=== PATIENT | male | born 1960 | race Caucasian/White ===

== ENCOUNTER 2018-08-28 10:11 | Emergency (ER) | payer OTHER ==
[~2018-08-28] VITALS: Ht 182.9 cm; Wt 136.1 kg
[2018-08-28 10:16] VITALS: BP 171/102
[2018-08-28] MEDS ORDERED: CEPH-264 PO (11:13)
[2018-08-28] MEDS ORDERED: GUAI12003 PO (11:13)
[2018-08-28] MEDS ORDERED: PRED50TA PO (11:13)
--- NOTE | 2018-08-28 11:20 | ED.ADGEN ---
Past History Past Medical History: Asthma, High Cholesterol, Hypertension Past Surgical History: Hip Replacement Alcohol Use: None Drug Use: None Adult General Chief Complaint Chief Complaint Asthma HPI HPI Patient is a 57-year-old male with history of asthma and hypertension who presents with productive cough with yellow-green sputum chest tightness and increased wheezing for the past 2 days. No fever chills, nausea vomiting or sweats. Patient reports sick exposure to multiple known members that also have upper respiratory tract infections. Patient has had increased home inhaler use and is been using albuterol inhaler 3-4 times daily. He is currently taking Zyrtec and Singulair. He contacted his primary care physician today and was instructed to go to the emergency department.[] Review of Systems Review of Systems Review symptoms of symptoms as per history of present illness All other review symptoms are negative. All other systems were reviewed and found to be within normal limits, except as documented in this note. Allergies Allergies Allergies Coded Allergies Type Severity Reaction Last Updated Verified No Known Drug Allergies 08/28/18 No Physical Exam Physical Exam Constitutional: Well developed, well nourished, no acute distress, non-toxic appearance. [] HENT: Normocephalic, atraumatic, bilateral external ears normal, oropharynx moist, no oral exudates, nose, nasal congestion turbinate swelling. [] Eyes: PERRLA, EOMI, conjunctiva normal, no discharge. [] Neck: Normal range of motion, no tenderness, supple, no stridor. [] Cardiovascular:Heart rate regular rhythm, no murmur [] Lungs & Thorax: Abrasions nonlabored mildly diminished, coarse expiratory wheezes. No rales or rhonchi.[] Abdomen: Bowel sounds normal, soft, no tenderness. [] Skin: Warm, dry, no erythema. [] Back: No tenderness. [] Extremities: No tenderness, no edema. [] Neurologic: Alert and oriented X 3, normal motor function, normal sensory function. [] Psychologic: Affect normal, judgement normal, mood normal. [] Current Patient Data Vital Signs Vital Signs Date Time Temp Pulse Resp B/P (MAP) Pulse Ox O2 Delivery O2 Flow Rate FiO2 08/28/18 10:16 97.2 69 18 97 Room Air EKG EKG [] Radiology/Procedures Radiology/Procedures [] Course & Med Decision Making Course & Med Decision Making Pertinent Labs and Imaging studies reviewed. (See chart for details) [Upper respiratory tract infection with bronchospasm. Patient is not hypoxic, minimal wheezing. Will treat with PCP follow-up.] Final Impression Final Impression [1Asthma Exacerbation 2 acute bronchitis ] Hillary Disclaimer Dragon Disclaimer This electronic medical record was generated, in whole or in part, using a voice recognition dictation system. KIRK RAMÍREZ DO Aug 28, 2018 11:20
== END 2018-08-28 11:21 | disposition home or self-care (01) ==
LOC: ER 10:11
DX: J45.901 Unspecified asthma with (acute) exacerbation (principal); J20.9 Acute bronchitis, unspecified; J06.9 Acute upper respiratory infection, unspecified; E78.00 Pure hypercholesterolemia, unspecified; I10 Essential (primary) hypertension
CPT/HCPCS: 99283

== ENCOUNTER 2020-08-04 10:42 | Emergency (ER) | payer OTHER ==
[~2020-08-04] VITALS: Ht 185.4 cm; Wt 129.5 kg
[~2020-08-04 10:42] MED LIST: CEPH-264 PO; GUAI12003 PO; PRED50TA PO
[2020-08-04] MEDS ORDERED: IOHEXOL 300 MG/ML 75 ML VIAL. IV ONE (11:15)
[2020-08-04 11:43] LABS: BASO % 0 % (0-3); EOS # 0.2 x10^3/uL (0.0-0.7); EOS % 3 % (0-3); HEMATOCRIT 48.3 % (39.0-53.0); HEMOGLOBIN 15.9 g/dL (13.0-17.5); LYMPH # 1.4 x10^3/uL (1.0-4.8); LYMPH % 19 % (24-48); MEAN CORPUSCULAR HEMOGLOBIN 31 pg (25-35); MEAN CORPUSCULAR HGB CONC 33 g/dL (31-37); MEAN CORPUSCULAR VOLUME 93 fL (79-100); MONO # 0.7 x10^3/uL (0.0-1.1); MONO % 9 % (0-9); NEUT # 5.2 x10^3uL (1.8-7.7); NEUT % 69 % (31-73); PLATELET COUNT 210 x10^3/uL (140-400); RED BLOOD COUNT 5.21 x10^6/uL (4.30-5.70); RED CELL DISTRIBUTION WIDTH 13.1 % (11.5-14.5); WHITE BLOOD COUNT 7.5 x10^3/uL (4.0-11.0)
[2020-08-04 11:49] LABS: CREATININE 1.1 mg/dL (0.7-1.3); GFR 68.8; POTASSIUM 4.3 mmol/L (3.5-5.1)
--- NOTE | 2020-08-04 12:49 | RAD ---
Examination: CT PELVIS W/CONTRAST History: recent hernia surgery, pain, swelling - diabetic / Comparison/Correlation: None Findings: Axial images of the pelvis obtained following IV contrast. Sagittal and coronal reformatted images were provided. Imaging was performed from the lower renal level to the proximal femoral shaft. Infusion port is seen at the left supraumbilical, mid to lower abdominal level in the midline. Associated tubing which extends superiorly is noted on the topogram. Visualized small bowel is unremarkable. Appendix is normal. Moderate-sized right inguinal hernia contains omental fat. Mild prominence of the vascularity is noted involving the right lower pelvic abdominal fat at the right inguinal hernia level. Slightly prominent vessel sizes is noted within the fat of the right lower omentum at the level of the hiatal hernia and also within the hiatal hernia. Urinary bladder is unremarkable. No enlarged pelvic lymph nodes. No pelvic free fluid or lower abdominal ascites. The right hip joint arthroplasty is noted. Bilateral L4-5 facet joint degenerative changes including vacuum phenomenon noted. Impression: Right inguinal hernia containing omental fat is moderate size and of slightly high density. Omental fat on the right at this level is also slightly high density. Findings may represent mild edema. No loculated collection. PQRS Compliance Statement: One or more of the following individualized dose reduction techniques were utilized for this examination: 1. Automated exposure control 2. Adjustment of the mA and/or kV according to patient size 3. Use of iterative reconstruction technique Electronically signed by: Bobby Sanford MD (08/04/2020 12:46 PM) [id number]
--- NOTE | 2020-08-04 13:26 | PHYS DOC ---
Past History Past Medical History: Asthma, Diabetes, High Cholesterol, Hypertension Past Surgical History: Hip Replacement, Knee Replacement, Other Additional Past Surgical Histo: 07/29/20- right inguinal hernia surgery Alcohol Use: None Drug Use: None Adult General Chief Complaint Chief Complaint: POST-OP PROBLEM HPI HPI Patient is a 59-year-old male who presents to the emergency room complaining of testicular pain and swelling after a hernia repair. He had his hernia repair last . He states as far as he knows there were no complications. He did have some swelling right after the surgery and talk to his surgeon about it on Sunday. They stated this was normal postop swelling. He states that the swelling has gotten progressively worse over time and he has noticed a purple discoloration in his testicles and up his penis. He states that his testicles are very swollen particularly on the right side. He states as long as he is l aying down he does not have any pain but anytime he tries to get up and move around it is very painful. He denies any nausea or vomiting. He has not had any difficulty with his bowels. He has not had any fever. Review of Systems Review of Systems General: Denies fever, chills, sweats, fatigue Eyes: Denies drainage, blurred vision, eye redness HENT: Denies rhinorrhea, sore throat, earache Respiratory: Denies cough, shortness of breath, wheezing Cardiac: Denies edema, palpitations, chest pain GI: Denies abdominal pain, Nausea, vomiting MSK: Denies back pain, neck pain Skin: Denies rash, jaundice Neuro: Denies headache, dizziness Psychiatric: Denies SI/HI general: Denies fever, chills, sweats, fatigue Eyes: Denies drainage, blurred vision, eye redness HENT: Denies rhinorrhea, sore throat, earache Respiratory: Denies cough, shortness of breath, wheezing Cardiac: Denies edema, palpitations, chest pain GI: Denies abdominal pain, Nausea, vomiting MSK: Denies back pain, neck pain Skin: Denies rash, jaundice Neuro: Denies headache, dizziness Psychiatric: Denies SI/HI Current Medications Current Medications Current Medications Medications (Trade) Dose Ordered Sig/Tabitha Start Time Stop Time Status Last Admin Dose Admin Iohexol (Omnipaque 300 Mg/ml) 75 ml 1X ONCE 08/04/20 11:15 08/04/20 11:16 DC 08/04/20 12:09 75 ML Allergies Allergies Allergies Coded Allergies Type Severity Reaction Last Updated Verified No Known Drug Allergies 08/28/18 No Physical Exam Physical Exam General: Awake, alert, NAD. Well Nourished, well hydrated. Cooperative HEENT: Atraumatic, EOMI, PERRL, airway patent, moist oral mucosa Neck: Supple, trachea midline Respiratory: CTA bilaterally, normal effort, no wheezing/crackles CV: RRR, no murmur, cap refill <2 GI: Soft, nondistended, nontender, no masses : Bilateral testicular swelling worse on the R side, bruising of R testicle with extension along the penis, mass within testicle that could be hematoma vs hernia MSK: No obvious deformities Skin: Warm, dry, intact Neuro: A&O x3, speech NL, sensory and motor grossly intact, no focal deficits Psych: Normal affect, normal mood, not suicidal or homicidal Current Patient Data Vital Signs Vital Signs Date Time Temp Pulse Resp B/P (MAP) Pulse Ox O2 Delivery O2 Flow Rate FiO2 08/04/20 11:02 98.1 74 16 148/90 (109) 97 Room Air Lab Results Laboratory Tests Test 08/04/20 11:22 White Blood Count 7.5 x10^3/uL (4.0-11.0) Red Blood Count 5.21 x10^6/uL (4.30-5.70) Hemoglobin 15.9 g/dL (13.0-17.5) Hematocrit 48.3 % (39.0-53.0) Mean Corpuscular Volume 93 fL (79-100) Mean Corpuscular Hemoglobin 31 pg (25-35) Mean Corpuscular Hemoglobin Concent 33 g/dL (31-37) Red Cell Distribution Width 13.1 % (11.5-14.5) Platelet Count 210 x10^3/uL (140-400) Neutrophils (%) (Auto) 69 % (31-73) Lymphocytes (%) (Auto) 19 % (24-48) L Monocytes (%) (Auto) 9 % (0-9) Eosinophils (%) (Auto) 3 % (0-3) Basophils (%) (Auto) 0 % (0-3) Neutrophils # (Auto) 5.2 x10^3uL (1.8-7.7) Lymphocytes # (Auto) 1.4 x10^3/uL (1.0-4.8) Monocytes # (Auto) 0.7 x10^3/uL (0.0-1.1) Eosinophils # (Auto) 0.2 x10^3/uL (0.0-0.7) Basophils # (Auto) 0.0 x10^3/uL (0.0-0.2) Prothrombin Time 10.2 SEC (9.4-11.4) Prothrombin Time INR 1.0 (0.9-1.1) Sodium Level 142 mmol/L (136-145) Potassium Level 4.3 mmol/L (3.5-5.1) Chloride Level 105 mmol/L (98-107) Carbon Dioxide Level 28 mmol/L (21-32) Anion Gap 9 (6-14) Blood Urea Nitrogen 23 mg/dL (8-26) Creatinine 1.1 mg/dL (0.7-1.3) Estimated GFR (Cockcroft-Gault) 68.8 Glucose Level 156 mg/dL (70-99) H Calcium Level 9.0 mg/dL (8.5-10.1) EKG EKG [] Radiology/Procedures Radiology/Procedures [] Course & Med Decision Making Course & Med Decision Making Pertinent Labs and Imaging studies reviewed. (See chart for details) Patient Is a 59 year old male who presents to the Emergency Room complaining of R testicular pain after a hernia surgery. He has significant swelling and tenderness. This may be due to post op hematoma and bruising. However given the swelling will do CT of pelvis with contrast and lab work. CT shows hernia which suggests failure of mesh. Dr Aviles contacted who states it is more likely a post op hematoma. Exam is consistent with hematoma. Dr Aviles will review imagining and have him follow up in clinic. No signs of bowel ischemia at this t aundrea. Patient's test results and vitals while in the ED were fully reviewed and discussed with the patient. Patient is stable and at this time does not need admission to the hospital. We have discussed strict return precautions and the importance of following up with their Primary Care Physician. Patient stated understanding and was given an opportunity to ask any questions. Patient is in agreement with plan. Dragon Disclaimer Dragon Disclaimer This electronic medical record was generated, in whole or in part, using a voice recognition dictation system. Departure Departure: Impression: Primary Impression: Postoperative hematoma Disposition: 01 HOME/RESIDENCE PRIOR TO ADM Condition: STABLE Referrals: ELEAZAR SILVA DO (PCP) Patient Instructions: Scrotal Hematoma MALGORZATA BURKS MD Aug 04, 2020 13:26
[2020-08-04] MEDS ORDERED: OXYC1TAB15 PO (14:08)
[2020-08-04 14:15] VITALS: BP 157/98
== END 2020-08-04 14:20 | disposition home or self-care (01) ==
LOC: ER 10:42
DX: N99.841 Postprocedural hematoma of a genitourinary system organ or structure following other procedure (principal); N50.811 Right testicular pain; J45.909 Unspecified asthma, uncomplicated; E11.9 Type 2 diabetes mellitus without complications; E78.00 Pure hypercholesterolemia, unspecified; I10 Essential (primary) hypertension
CPT/HCPCS: 36415; 72193; 80048; 85025; 85610; 99285; Q9967

== ENCOUNTER 2020-08-20 06:38 | Emergency (ER) | payer OTHER ==
[~2020-08-20] VITALS: Ht 185.4 cm; Wt 130.1 kg
[~2020-08-20 06:38] MED LIST changes: +OXYC1TAB15 PO
[2020-08-20 06:52] VITALS: BP 114/98
--- NOTE | 2020-08-20 07:08 | PHYS DOC ---
Past History Past Medical History: Asthma, Diabetes, High Cholesterol, Hypertension Past Surgical History: Hip Replacement, Knee Replacement, Other Additional Past Surgical Histo: 07/29/20- right inguinal hernia surgery Alcohol Use: None Drug Use: None General Adult EDM: Chief Complaint: POST-OP PROBLEM HPI: HPI: Patient is a 59-year-old male coming in with worsening right groin and right lower quadrant pain and swelling. Had a hernia repair with mesh 3 weeks ago was seen 1 week ago and diagnosed with a hematoma. Patient states he has not been doing any heavy lifting or working out but woke up this morning with worsening pain and swelling. Patient states his symptoms were not present when he went to bed last night. But now feels that the swelling is worse through his right scrotum up into the right side of his abdomen. No other complaints, still have regular bowel movements. Review of Systems: Review of Systems: Constitutional: Denies fever or chills Eyes: Denies change in visual acuity HENT: Denies nasal congestion or sore throat Respiratory: Denies cough or shortness of breath Cardiovascular: Denies chest pain or edema GI: Denies abdominal pain, nausea, vomiting, bloody stools or diarrhea, right lower quadrant pain and swelling : Denies dysuria or hematuria, swelling of the right scrotum Musculoskeletal: Denies back pain or joint pain Integument: Denies rash Neurologic: Denies headache, focal weakness or sensory changes Endocrine: Denies polyuria or polydipsia Lymphatic: Denies swollen glands Psychiatric: Denies depression or anxiety Heart Score: Risk Factors: Risk Factors: DM, Current or recent (<one month) smoker, HTN, HLP, family history of CAD, obesity. Risk Scores: Score 0 - 3: 2.5% MACE over next 6 weeks - Discharge Home Score 4 - 6: 20.3% MACE over next 6 weeks - Admit for Clinical Observation Score 7 - 10: 72.7% MACE over next 6 weeks - Early Invasive Strategies Allergies: Allergies: Allergies Coded Allergies Type Severity Reaction Last Updated Verified No Known Drug Allergies 08/28/18 No Physical Exam: PE: Constitutional: Well developed, well nourished, no acute distress, non-toxic appearance. [] HENT: Normocephalic, atraumatic, bilateral external ears normal, oropharynx moist, no oral exudates, nose normal. [] Eyes: PERRLA, EOMI, conjunctiva normal, no discharge. [] Neck: Normal range of motion, no tenderness, supple, no stridor. [] Cardiovascular:Heart rate regular rhythm, no murmur [] Lungs & Thorax: Bilateral breath sounds clear to auscultation [] Abdomen: Bowel sounds normal, soft, no tenderness, no masses, no pulsatile masses. [] Tender mass in right inguinal area extending into right testicle. Skin: Warm, dry, no erythema, no rash. [] Back: No tenderness, no CVA tenderness. [] Extremities: No tenderness, no cyanosis, no clubbing, ROM intact, no edema. [] Neurologic: Alert and oriented X 3, normal motor function, normal sensory function, no focal deficits noted. [] Psychologic: Affect normal, judgement normal, mood normal. [] Current Patient Data: Vital Signs: Vital Signs Date Time Temp Pulse Resp B/P (MAP) Pulse Ox O2 Delivery O2 Flow Rate FiO2 08/20/20 06:52 98.0 59 16 114/98 (103) 97 Room Air EKG: EKG: [] Radiology/Procedures: Radiology/Procedures: CT abdomen and pelvis with contrast PQRS statement: CT scans at this facility use dose reduction including either automated exposure control, iterative reconstructions, and /or weight based radiation dosing via mA and kV modification when appropriate to reduce radiation dose to as low as reasonably achievable. Contrast: 100 mL of a 300 intravenous contrast. HISTORY: Right lower quadrant pain, right lower quadrant hernia, right inguinal hernia. Abdomen findings: Bariatric gastric banding, small sliding hiatal hernia gastroesophageal junction. Lung bases unremarkable. Small densities likely gallstones within the gallbladder. 2 cm right adrenal nodule density of 9 units favoring an adrenal cyst or adenoma. Left adrenal, left kidney, pancreas, spleen and liver are unremarkable. Right renal midpole exophytic 1 cm cyst density 5 units. Mild sigmoid diverticulosis. Appendix is negative. No obstruction or inflammation GI tract. No abdominal fluid or adenopathy. Lower thoracic vertebral and lumbar vertebral hemangiomas. Pelvis findings: Right hip arthroplasty. Right inguinal hernia containing fat and fluid measures 18 x 6 cm and displaces the right testicle inferiorly within the scrotum, no herniation of bowel. There is mild fat stranding deep to the right inguinal ligament at the right lower quadrant which could be inflammation or necrosis of the fat or could be due to prior surgery. Bladder, prostate, rectum unremarkable. IMPRESSION: 1. Fluid and fat-containing right inguinal hernia. No herniation of bowel. See above. 2. No acute process in the abdomen. Appendix is negative. [] Course & Med Decision Making: Course & Med Decision Making Pertinent Labs and Imaging studies reviewed. (See chart for details) No signs of bowel involvement and hernia, discussed with patient pain is likely worsening and now contains fat. Discussed return precautions and pain management until follow-up with his surgeon. [] Dragon Disclaimer: Dragon Disclaimer: This electronic medical record was generated, in whole or in part, using a voice recognition dictation system. Departure Departure: Impression: Primary Impression: Right inguinal hernia Disposition: 01 DC HOME SELF CARE/HOMELESS Condition: STABLE Referrals: ELEAZAR SILVA DO (PCP) SOLOMON COREA MD Patient Instructions: Hernia Scripts Hydrocodone Bit/Acetaminophen (NORCO 5-325 TABLET) 1 Each Tablet 1-2 TAB PO Q4-6HRS PRN for PAIN for 3 Days, #20 TAB Prov: BERNABE GAMA MD 08/20/20 BERNABE GAMA MD Aug 20, 2020 07:08
[2020-08-20] MEDS ORDERED: IOHEXOL 300 MG/ML 75 ML VIAL. IV ONE (07:15)
[2020-08-20] MEDS ORDERED: CONTRAST GIVEN. MC PRN (07:30)
[2020-08-20 07:45] LABS: BASO % 0 % (0-3); EOS # 0.2 x10^3/uL (0.0-0.7); EOS % 3 % (0-3); HEMATOCRIT 47.8 % (39.0-53.0); HEMOGLOBIN 15.6 g/dL (13.0-17.5); LYMPH # 1.4 x10^3/uL (1.0-4.8); LYMPH % 23 % (24-48); MEAN CORPUSCULAR HEMOGLOBIN 30 pg (25-35); MEAN CORPUSCULAR HGB CONC 33 g/dL (31-37); MEAN CORPUSCULAR VOLUME 92 fL (79-100); MONO # 0.6 x10^3/uL (0.0-1.1); MONO % 10 % (0-9); NEUT # 4.1 x10^3uL (1.8-7.7); NEUT % 64 % (31-73); PLATELET COUNT 209 x10^3/uL (140-400); RED BLOOD COUNT 5.18 x10^6/uL (4.30-5.70); WHITE BLOOD COUNT 6.4 x10^3/uL (4.0-11.0)
[2020-08-20 07:50] LABS: CALCIUM 9.2 mg/dL (8.5-10.1); CREATININE 1.2 mg/dL (0.7-1.3); GFR 62.2; POTASSIUM 4.4 mmol/L (3.5-5.1)
--- NOTE | 2020-08-20 07:59 | RAD ---
CT abdomen and pelvis with contrast PQRS statement: CT scans at this facility use dose reduction including either automated exposure control, iterative reconstructions, and /or weight based radiation dosing via mA and kV modification when appropriate to reduce radiation dose to as low as reasonably achievable. Contrast: 100 mL of a 300 intravenous contrast. HISTORY: Right lower quadrant pain, right lower quadrant hernia, right inguinal hernia. Abdomen findings: Bariatric gastric banding, small sliding hiatal hernia gastroesophageal junction. Lung bases unremarkable. Small densities likely gallstones within the gallbladder. 2 cm right adrenal nodule density of 9 units favoring an adrenal cyst or adenoma. Left adrenal, left kidney, pancreas, spleen and liver are unremarkable. Right renal midpole exophytic 1 cm cyst density 5 units. Mild sigmoid diverticulosis. Appendix is negative. No obstruction or inflammation GI tract. No abdominal fluid or adenopathy. Lower thoracic vertebral and lumbar vertebral hemangiomas. Pelvis findings: Right hip arthroplasty. Right inguinal hernia containing fat and fluid measures 18 x 6 cm and displaces the right testicle inferiorly within the scrotum, no herniation of bowel. There is mild fat stranding deep to the right inguinal ligament at the right lower quadrant which could be inflammation or necrosis of the fat or could be due to prior surgery. Bladder, prostate, rectum unremarkable. IMPRESSION: 1. Fluid and fat-containing right inguinal hernia. No herniation of bowel. See above. 2. No acute process in the abdomen. Appendix is negative. Electronically signed by: Jarrett Saha MD (08/20/2020 7:56 AM) [id number]
[2020-08-20 08:11] LABS: BACTERIA,URINE 0 /HPF (0-FEW); BILIRUBIN,URINE NEG (NEG); CLARITY,URINE CLEAR; COLOR,URINE YELLOW; GLUCOSE,URINE NEG (NEG); NITRITE,URINE NEG (NEG); RBC,URINE 0 /HPF (0-2); SQUAMOUS EPITHELIAL CELL,UR OCC /LPF; UROBILINOGEN,URINE 0.2 mg/dL (0.2 mg/dL); WBC,URINE 0 /HPF (0-4)
[2020-08-20] MEDS ORDERED: HYDR-3165 PO (08:18)
== END 2020-08-20 08:20 | disposition home or self-care (01) ==
LOC: ER 06:38
DX: K40.90 Unilateral inguinal hernia, without obstruction or gangrene, not specified as recurrent (principal); J45.909 Unspecified asthma, uncomplicated; E11.9 Type 2 diabetes mellitus without complications; E78.00 Pure hypercholesterolemia, unspecified; I10 Essential (primary) hypertension
CPT/HCPCS: 36415; 74177; 80048; 81001; 83605; 85025; 99285; Q9967

== ENCOUNTER 2021-01-30 10:53 | Emergency (ER) | payer OTHER ==
[~2021-01-30] VITALS: Ht 185.4 cm; Wt 130.1 kg
[~2021-01-30 10:53] MED LIST changes: +HYDR-3165 PO
--- NOTE | 2021-01-30 11:06 | PHYS DOC ---
Past History Past Medical History: Asthma, Diabetes, High Cholesterol, Hypertension Past Surgical History: Hip Replacement, Knee Replacement, Other Additional Past Surgical Histo: 07/29/20- right inguinal hernia surgery Alcohol Use: None Drug Use: None General Adult HPI: HPI: 60-year-old male past medical history significant for hqp-[id number]-[id number] diabetes, hypertension, hyperlipidemia, obesity and asthma, presents to the ED with complaints of right-sided, sharp chest pain that radiates to the back that started around 7 AM this morning while showering, raising both hands to his head to wash his hair. Patient reports right posterior arm numbness and right upper back pain -patient woke up with the symptoms. Reports retired and was working outside yesterday lifting a lot of heavy boxes. History of bilateral shoulder surgeries [place] 5 through 7 fusion, history of C2-7 disc herniations but mild in C2, 3 and 4 in 2008. Reports history of sepsis with pneumonia, admitted to the ICU in 2017 with paroxysmal atrial fibrillation. Does not require any further anticoagulation. The inpatient stay was complicated with pleural effusion and thoracentesis. Reports has had a history of similar symptoms when he had " liquid around the heart," and " pleurisy," years ago. No associated nausea, vomiting, diaphoresis, dyspnea, abscess, unilateral leg swelling, lightheadedness, dizziness, near-syncope or syncope. Patient's father of a heart attack at 72, history of significant CAD. Has had 2 brothers , one at 39 and one at 49, both deaths secondary to brain aneurysm, ICH and edema. Review of Systems: Review of Systems: Constitutional: Denies fever or chills Eyes: Denies change in visual acuity HENT: Denies nasal congestion or sore throat Respiratory: Denies cough or shortness of breath Cardiovascular: Denies chest pain or edema GI: Denies abdominal pain, nausea, vomiting, bloody stools or diarrhea : Denies dysuria Musculoskeletal: Denies back pain or joint pain Integument: Denies rash Neurologic: Denies headache, focal weakness or sensory changes Endocrine: Denies polyuria or polydipsia Lymphatic: Denies swollen glands Psychiatric: Denies depression or anxiety Allergies: Allergies: Allergies Coded Allergies Type Severity Reaction Last Updated Verified No Known Drug Allergies 08/28/18 No Physical Exam: PE: Constitutional: Well developed, well nourished, no acute distress, non-toxic appearance. HENT: Normocephalic, atraumatic, Eyes: EOMI, conjunctiva normal, no discharge. Neck: Normal range of motion, supple, Cardiovascular: S1/2 present, regular rhythm Lungs & Thorax: Speaking in full sentences, bilateral equal chest rise, no tachypnea or increased work of breathing Abdomen: soft, no tenderness, Skin: Warm, dry, no erythema, no rash. [] Back: No tenderness, no CVA tenderness. [] Extremities: No tenderness, no cyanosis, no lower extremity edema Neurologic: Alert and oriented X 3, normal motor function, normal sensory function, no focal deficits noted. [] Psychologic: Affect normal, judgement normal, mood normal. [] EKG: EKG: Sinus rhythm at 64 bpm, no axis deviation, normal intervals, T wave inversion V2 and aVL, no ST elevations or ST depressions, nonpathological Q waves 1 and aVL (not 1 box wide) Radiology/Procedures: Radiology/Procedures: IMAGING REPORT Signed PATIENT: YOEL GAMA ACCOUNT: [id number] : 1960 LOCATION: ER AGE: 60 SEX: M EXAM STATUS: REG ER ORD. PHYSICIAN: ALEX POWELL DO REASON: right back pain, rue numbness PROCEDURE: CT HEAD AND CERVICAL SPINE WO Exam Date: 01/30/2021 11:[address] HEAD AND C-SPINE WO Indication: Reason: right back pain, rue numbness / Spl. Instructions: / History: One or more of the following dose reduction techniques were utilized: *Automated exposure control (AEC) *Adjustment of mA and/or kV according to patient size *Use of iterative reconstruction technique *CT scan done according to ALARA, or ALARA/IMAGE GENTLY EXAMINATION: CT OF THE HEAD WITHOUT CONTRAST INDICATION: Trauma, head injury, headache; TECHNIQUE: Noncontrast helical axial CT images of the head were obtained. FINDINGS: The ventricles and sulci are normal for the patient's stated age. There is no evidence of acute intracranial hemorrhage, extra-axial collection, mass effect, midline shift, or acute territorial infarct. No lesion of the skull base or the calvarium is seen. The visualized paranasal sinuses, mastoid air cells, and orbits are normal in appearance. IMPRESSION: No evidence for acute intracranial abnormality. EXAMINATION: CT OF THE CERVICAL SPINE WITHOUT CONTRAST Clinical Indication: Cervical spine pain after trauma Technique: Thin cut helical axial CT images through the cervical spine were obtained without contrast on a multi-detector CT scanner. Source data was then reconstructed into sagittal and coronal planes. Findings: Anterior fusion is noted from C5 to C7. Severe multilevel degenerative changes are noted. Alignment is maintained. Vertebral body heights are maintained without acute fracture. No significant prevertebral soft tissue swelling is demonstrated. No severe central canal stenosis is seen. Impression: No evidence of acute cervical spine fracture or subluxation. Electronically signed by: Fredi Bowers MD (01/30/2021 11:58 AM) [facility] DICTATED AND SIGNED BY: FREDI BOWERS MD DATE: 01/30/21 1154 CC: ELEAZAR SILVA DO; ALEX POWELL DO ~MTH0 0 IMAGING REPORT Signed PATIENT: YOEL GAMA ACCOUNT: [id number] : 1960 LOCATION: ER AGE: 60 SEX: M EXAM STATUS: REG ER ORD. PHYSICIAN: ALEX POWELL DO REASON: chest pain, right arm weakness,short of air with deep inspiration PROCEDURE: PORTABLE CHEST 1V Exam Date: 01/30/2021 11:05 AM XR CHEST 1V Indication: Reason: chest pain, right arm weakness,short of air with deep inspiration / Spl. Instructions: / History: FINDINGS/ IMPRESSION: There is mild left basilar subsegmental atelectasis. The cardiac silhouette and pulmonary vasculature are within normal limits. There is no focal consolidation, pleural effusion or pneumothorax. The visualized osseous structures are intact. Electronically signed by: Fredi Bowers MD (01/30/2021 11:35 AM) [facility] DICTATED AND SIGNED BY: FREDI BOWERS MD DATE: 01/30/21 1135 CC: ELEAZAR SILVA DO; ALEX POWELL DO ~MTH0 0 IMAGING REPORT Signed PATIENT: YOEL GAMA ACCOUNT: [id number] : 1960 LOCATION: ER AGE: 60 SEX: M EXAM STATUS: REG ER ORD. PHYSICIAN: ALEX POWELL DO REASON: cp radiates to back, r/o dissection 100mls omni 350 PROCEDURE: CT ANGIO CHEST ABD PELVIS Exam Date: 01/30/2021 12:30 PM CTA CHEST_ABDOMEN_AND PELVIS Indication: Reason: cp radiates to back, r/o dissection 100mls omni 350 / Spl. Instructions: / History: Technique: CT ANGIOGRAM OF THE CHEST, ABDOMEN AND PELVIS was performed before and after administration of nonionic intravenous contrast. 3-D reconstructed images were created on an independent workstation and reviewed to assist in clinical management. One or more of the following dose reduction techniques were utilized: *Automated exposure control (AEC) *Adjustment of mA and/or kV according to patient size *Use of iterative reconstruction technique *CT scan done according to ALARA, or ALARA/IMAGE GENTLY COMPARISON: August 20, 2020 Findings: CT ANGIOGRAM AORTA: The aorta is normal in course and caliber. There is no evidence of aneurysm, stenosis, wall thickening or dissection. The origins of the great vessels are patent. The celiac axis, SMA, single bilateral renal arteries and DORA are patent. CT ANGIOGRAM CHEST: Calcified mediastinal and hilar lymph nodes are seen. Mild bibasilar sub segmental atelectasis and/or scarring is seen. There is a 7 mm reticulonodular opacity in the right lung on image 250 series 7. The central airways are patent. There is no focal consolidation, pleural effusion or pneumothorax. The visualized thyroid gland is within normal limits. No lymphadenopathy is seen. The heart is normal in size without pericardial effusion. CT ANGIOGRAM ABDOMEN PELVIS: A gastric band is in place, possibly with a small hiatal hernia. Calcified granulomas are seen in the spleen. There is a 2.3 cm right adrenal hypodense lesion, not significantly changed. Small right renal cyst is noted. 2 small to characterize hypodensity in the right kidney is noted. The liver, gallbladder, spleen, pancreas, adrenal glands and kidneys are ot herwise normal. Urinary bladder is normal in appearance. There is no bowel obstruction or inflammation. The appendix is normal. Mild atherosclerotic calcifications are seen. No lymphadenopathy or ascites is seen. There is a fat-containing right inguinal hernia. Degenerative changes are seen in the spine. Impression: Normal caliber aorta without evidence for dissection or aneurysm. Electronically signed by: Fredi Bowers MD (01/30/2021 1:23 PM) [facility] DICTATED AND SIGNED BY: FRDEI BOWERS MD DATE: 01/30/21 9339 CC: ELEAZAR SILVA DO; ALEX POWELL DO ~MTH0 0 Impressions: 0 points, Low risk group for DVT. Unlikely according to [facility] DVT studies. 0.0 points. Low risk group: 1.3% chance of PE in an ED population. Another study assigned scores less than or equal to 4 as PE Unlikely and had a 3% incidence of PE. Heart Score: C/O Chest Pain: Yes HEART Score for Chest Pain: HEART Score for Chest Pain Response (Comments) Value History Slighlty/Non-Suspicious 0 ECG Nonspecific Repolarizatio 1 Age >45 - < 65 1 Risk Factors >3 Risk Factors or Hx CAD 2 Troponin < Normal Limit 0 Total 4 Risk Factors: Risk Factors: DM, Current or recent (<one month) smoker, HTN, HLP, family history of CAD, obesity. Risk Scores: Score 0 - 3: 2.5% MACE over next 6 weeks - Discharge Home Score 4 - 6: 20.3% MACE over next 6 weeks - Admit for Clinical Observation Score 7 - 10: 72.7% MACE over next 6 weeks - Early Invasive Strategies Course & Med Decision Making: Course & Med Decision Making Pertinent Labs and Imaging studies reviewed. (See chart for details) Concern for reproducible right-sided pectoralis and right upper trapezius muscle chest and back pain after heavy lifting 1 day prior. 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 Has had negative stress test. Reports cardiac cath over 15 years ago with no CAD-was performed due to risk factors for surgery. Will discharge home with strict ED return precautions were given for chest pressure/tightness/squeezing, syncope, neurologic deficits, diaphoresis, nausea or vomiting-patient understands typical chest pain symptoms given his fathers' history and he agrees to return immediately. at bedside -wtinesses this conversation and also agrees to call 911 if these sxs should present. Encouraged urgent outpatient follow-up with PMD and cardiology. Life-threatening processes were considered but are low suspicion at this time, given history, physical exam and ED workup. Pt was educated on all prescription medications and adverse effects. All patient's questions were answered and pt was stable at time of discharge. Life/limb-threatening differential includes but is not limited to, acute myoca rdial infarction, aortic dissection, congestive heart failure, esophageal injury including rupture, surgical abdomen, arrhythmia, cardiomyopathy, myocarditis, pericarditis, peptic ulcer disease, pneumomediastinum, pneumonia, pneumothorax, pulmonary embolus, unstable angina, rib fracture, contusion, pericardial tamponade or effusion, traumatic injury including mediastinal hemorrhage or hematoma, or pulmonary contusion. I spoken with the patient and her caregivers. I explained the patient's condition, diagnoses and treatment plan based on the information available to me at this time. I have answered the patient and her caregiver's questions and addressed any concerns. The patient and her caregivers have a good understanding of patient's diagnosis, condition and treatment plan as can be expected at this point. Vital signs have been stable. Patient's condition is stable and appropriate for discharge from the emergency department. Patient will pursue further outpatient evaluation with primary care physician or other designated or consulting physician as outlined in the discharge instructions. The patient and/or caregivers are agreeable to this plan of care and follow-up instructions have been explained in detail. The patient and/or caregivers have received these instructions in written form and have expressed an understanding of the discharge instructions. The patient and/or caregivers are aware that any significant change of condition or worsening of symptoms should prompt immediate return to this or the closest emergency department or call to 911. Hillary Disclaimer: Hillary Disclaimer: This electronic medical record was generated, in whole or in part, using a voice recognition dictation system. Departure Departure: Impression: Primary Impression: Chest pain Additional Impressions: Trapezius muscle spasm Pectoralis muscle strain Disposition: 01 DC HOME SELF CARE/HOMELESS Condition: STABLE Referrals: ELEAZAR SILVA DO (PCP) in 1-2 weeks for re-evaluation Patient Instructions: Chest Pain (Nonspecific), Musculoskeletal Pain Additional Instructions: FOLLOW UP WITH CARDIOLOGY: WITHIN ONE WEEK FOR OUTPATIENT FOLLOWUP [facility] [address] [facility] [address] [place] [address] OR [facility] [address] [id number] EMERGENCY DEPARTMENT GENERAL DISCHARGE INSTRUCTIONS Thank you for coming to [facility] (ED) today and trusting us with you care. We trust that you had a positivie experience in our Emergency Department. If you wish to speak to the department management, you may call the director at [phone]. YOUR FOLLOW UP INSTRUCTIONS ARE FOLLOWS: 1. Do you have a private Doctor? If you do not have a private doctor, please ask for a resource list of physicians or clinics that may be able to assist you with follow up care. 2. The Emergency Physician has interpreted your x-rays. The X-Ray specialist will also review them. If there is a change in the findings, you will be notified in 48 hours when at all possible. 3. A lab test or culture has been done, your results will be reviewed and you will be notified if you need a change in treatment. ADDITIONAL INSTRUCTIONS AND INFORMATION: 1. Your care today has been supervised by a physician who is specially trained in emergency care. Many problems require more than one evaluation for a complete diagnosis and treatment. We recommend that you schedule your follow up appointment as recommended to ensure complete treatment of you illness or injury. If you are unable to obtain follow up care and continue to have a problem, or if your condition worsens, we recommend that you return to the ED. 2. We are not able to safely determine your condition over the phone nor are we able to give sound medical advice over the phone. For these safety reasons, if you call for medical advice we will ask you to come to the ED for further evaluation. 3. If you have any questions regarding these discharge instructions please call the ED at [phone]. SAFETY INFORMATION: In the interest of safety, wellness, and injury prevention; we encourage you to wear your sealbelt, if you smoke; quite smoking, and we encourage family to use a protective helmet for bicycling and other sporting events that present an increased risk for head injury. IF YOUR SYMPTOMS WORSEN OR NEW SYMPTOMS DEVELOP, OR YOU HAVE CONCERNS ABOUT YOUR CONDITION; OR IF YOUR CONDITION WORSENS WHILE YOU ARE WAITING FOR YOUR FOLLOW UP APPOINTMENT; EITHER CONTACT YOUR PRIMARY CARE DOCTOR, THE PHYSICIAN WHOSE NAME AND NUMBER YOU WERE GIVEN, OR RETURN TO THE ED IMMEDIATELY. Scripts Ibuprofen (IBUPROFEN) 600 Mg Tablet 600 MG PO Q6HRS for headache, #20 TAB Prov: ALEX POWELL DO 01/30/21 Cyclobenzaprine Hcl (CYCLOBENZAPRINE HCL) 5 Mg Tablet 1 TAB PO TID for pain, #20 TAB Prov: ALEX POWELL DO 01/30/21 ALEX POWELL DO Jan 30, 2021 11:06
[2021-01-30 11:09] VITALS: BP 163/76
[2021-01-30 11:21] LABS: BASO % 0 % (0-3); EOS # 0.2 x10^3/uL (0.0-0.7); EOS % 2 % (0-3); HEMATOCRIT 47.2 % (39.0-53.0); HEMOGLOBIN 15.6 g/dL (13.0-17.5); LYMPH # 1.4 x10^3/uL (1.0-4.8); LYMPH % 21 % (24-48); MEAN CORPUSCULAR HEMOGLOBIN 30 pg (25-35); MEAN CORPUSCULAR HGB CONC 33 g/dL (31-37); MEAN CORPUSCULAR VOLUME 90 fL (79-100); MONO # 0.6 x10^3/uL (0.0-1.1); MONO % 9 % (0-9); NEUT # 4.6 x10^3uL (1.8-7.7); NEUT % 67 % (31-73); PLATELET COUNT 185 x10^3/uL (140-400); RED BLOOD COUNT 5.23 x10^6/uL (4.30-5.70); RED CELL DISTRIBUTION WIDTH 13.4 % (11.5-14.5); WHITE BLOOD COUNT 6.8 x10^3/uL (4.0-11.0)
[2021-01-30 11:32] LABS: CALCIUM 9.8 mg/dL (8.5-10.1); GFR 76.5; POTASSIUM 4.4 mmol/L (3.5-5.1)
--- NOTE | 2021-01-30 11:37 | RAD ---
Exam Date: 01/30/2021 11:05 AM XR CHEST 1V Indication: Reason: chest pain, right arm weakness,short of air with deep inspiration / Spl. Instruct ions: / History: FINDINGS/ IMPRESSION: There is mild left basilar subsegmental atelectasis. The cardiac silhouette and pulmonary vasculature are within normal limits. There is no focal consolidation, pleural effusion or pneumothorax. The visualized osseous structures are intact. Electronically signed by: Armen Bowers MD (01/30/2021 11:35 AM) [facility]
[2021-01-30 11:44] LABS: ALBUMIN 3.9 g/dL (3.4-5.0); TOTAL BILIRUBIN 0.9 mg/dL (0.2-1.0); TOTAL PROTEIN 7.7 g/dL (6.4-8.2)
--- NOTE | 2021-01-30 12:00 | RAD ---
Exam Date: 01/30/2021 11:[address] HEAD AND C-SPINE WO Indication: Reason: right back pain, rue numbness / Spl. Instructions: / History: One or more of the following dose reduction techniques were utilized: *Automated exposure control (AEC) *Adjustment of mA and/or kV according to patient size *Use of iterative reconstruction technique *CT scan done according to ALARA, or ALARA/IMAGE GENTLY EXAMINATION: CT OF THE HEAD WITHOUT CONTRAST INDICATION: Trauma, head injury, headache; TECHNIQUE: Noncontrast helical axial CT images of the head were obtained. FINDINGS: The ventricles and sulci are normal for the patient's stated age. There is no evidence of acute int racranial hemorrhage, extra-axial collection, mass effect, midline shift, or acute territorial infarc t. No lesion of the skull base or the calvarium is seen. The visualized paranasal sinuses, mastoid ai r cells, and orbits are normal in appearance. IMPRESSION: No evidence for acute intracranial abnormality. EXAMINATION: CT OF THE CERVICAL SPINE WITHOUT CONTRAST Clinical Indication: Cervical spine pain after trauma Technique: Thin cut helical axial CT images through the cervical spine were obtained without contrast on a multi-detector CT scanner. Source data was then reconstructed into sagittal and coronal planes. Findings: Anterior fusion is noted from C5 to C7. Severe multilevel degenerative changes are noted. Alignment i s maintained. Vertebral body heights are maintained without acute fracture. No significant prevertebral soft tissue swelling is demonstrated. No severe central canal stenosis is seen. Impression: No evidence of acute cervical spine fracture or subluxation. Electronically signed by: Armen Bowers MD (01/30/2021 11:58 AM) [facility]
[2021-01-30] MEDS ORDERED: IOHEXOL 350 MG/ML 100 ML VIAL. IV ONE (12:30)
[2021-01-30] MEDS ORDERED: CONTRAST GIVEN. MC PRN (12:45)
[2021-01-30 12:48] LABS: AMPHETAMINE/METHAMPHETAMINE NEG (NEG); BARBITURATES NEG (NEG); BENZODIAZEPINES NEG (NEG); CANNABINOIDS NEG (NEG); COCAINE NEG (NEG); METHADONE NEG (NEG); OPIATES NEG (NEG); PHENCYCLIDINE NEG (NEG)
--- NOTE | 2021-01-30 12:54 | EKG ---
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
[2021-01-30 13:03] LABS: CLARITY,URINE CLEAR; COLOR,URINE YELLOW
[2021-01-30 13:04] LABS: BACTERIA,URINE 0 /HPF (0-FEW); BILIRUBIN,URINE NEG (NEG); GLUCOSE,URINE 100 mg/dL (NEG); NITRITE,URINE NEG (NEG); RBC,URINE OCC /HPF (0-2); SQUAMOUS EPITHELIAL CELL,UR OCC /LPF; WBC,URINE OCC /HPF (0-4)
--- NOTE | 2021-01-30 13:25 | RAD ---
Exam Date: 01/30/2021 12:30 PM CTA CHEST_ABDOMEN_AND PELVIS Indication: Reason: cp radiates to back, r/o dissection 100mls omni 350 / Spl. Instructions: / Histo ry: Technique: CT ANGIOGRAM OF THE CHEST, ABDOMEN AND PELVIS was performed before and after administratio n of nonionic intravenous contrast. 3-D reconstructed images were created on an independent workstat ion and reviewed to assist in clinical management. One or more of the following dose reduction techn iques were utilized: *Automated exposure control (AEC) *Adjustment of mA and/or kV according to patient size *Use of iterative reconstruction technique *CT scan done according to ALARA, or ALARA/IMAGE GENTLY COMPARISON: August 20, 2020 Findings: CT ANGIOGRAM AORTA: The aorta is normal in course and caliber. There is no evidence of aneurysm, stenosis, wall thickenin g or dissection. The origins of the great vessels are patent. The celiac axis, SMA, single bilateral renal arteries and DORA are patent. CT ANGIOGRAM CHEST: Calcified mediastinal and hilar lymph nodes are seen. Mild bibasilar subsegmental atelectasis and/or scarring is seen. There is a 7 mm reticulonodular opacity in the right lung on image 250 series 7. The central airways are patent. There is no focal consolidation, pleural effusion or pneumothorax. The visualized thyroid gland is within normal limits. No lymphadenopathy is seen. The heart is norm al in size without pericardial effusion. CT ANGIOGRAM ABDOMEN PELVIS: A gastric band is in place, possibly with a small hiatal hernia. Calcified granulomas are seen in the spleen. There is a 2.3 cm right adrenal hypodense lesion, not significantly changed. Small right abdulkadir al cyst is noted. 2 small to characterize hypodensity in the right kidney is noted. The liver, gallbladder, spleen, pancreas, adrenal glands and kidneys are otherwise normal. Urinary bladder is normal in appearance. There is no bowel obstruction or inflammation. The append ix is normal. Mild atherosclerotic calcifications are seen. No lymphadenopathy or ascites is seen. T here is a fat-containing right inguinal hernia. Degenerative changes are seen in the spine. Impression: Normal caliber aorta without evidence for dissection or aneurysm. Electronically signed by: Armen Bowers MD (01/30/2021 1:23 PM) [facility]
[2021-01-30] MEDS ORDERED: KETOROLAC 15 MG/ML VIAL. IVP ONE (13:30)
[2021-01-30] MEDS ORDERED: LIDOCAINE (700MG/PATCH) PATCH. TD ONE (13:39)
[2021-01-30] MEDS ORDERED: CYCL5TAB PO (16:24)
[2021-01-30] MEDS ORDERED: IBUP600T16 PO (16:24)
[2021-01-30] MEDS ORDERED: diazePAM 5 MG TABLET. PO ONE (16:30)
[2021-01-30] MEDS ORDERED: PATCH REMOVAL. MC SCH (21:00)
== END 2021-01-30 16:41 | disposition home or self-care (01) ==
LOC: ER 10:53
DX: S29.011A Strain of muscle and tendon of front wall of thorax, initial encounter (principal); R07.89 Other chest pain; M62.838 Other muscle spasm; J45.909 Unspecified asthma, uncomplicated; E11.9 Type 2 diabetes mellitus without complications; E78.00 Pure hypercholesterolemia, unspecified; I10 Essential (primary) hypertension; E78.5 Hyperlipidemia, unspecified; E66.9 Obesity, unspecified; I48.91 Unspecified atrial fibrillation; Z68.37 Body mass index [BMI] 37.0-37.9, adult; X50.9XXA Other and unspecified overexertion or strenuous movements or postures, initial encounter; Y93.E1 Activity, personal bathing and showering; Y92.89 Other specified places as the place of occurrence of the external cause; Y99.8 Other external cause status
CPT/HCPCS: 36415; 70450; 71045; 71275; 72125; 74174; 80053; 80307; 81001; 82550; 83690; 83880; 84484; 85025; 85379; 85610; 85730; 93005; 96374; 96375; 99285; J1885; J3010; Q9967